=== PATIENT | male | born 1965 | race Caucasian/White ===

== ENCOUNTER 2017-10-13 10:00 | Emergency (ER) | payer SELFPAY ==
[2017-10-13 10:53] LABS: #Basophils 0.1 thou/uL (0.0-0.2); #Eosinphils 0.2 thou/uL (0.0-0.7); #Lymphocytes 2.3 thou/uL (1.20-3.40); #Monocytes 0.6 thou/uL (0.11-0.59); #Neutrophils 3.8 thou/uL (1.40-6.50); %Basophils 1.2 % (0.0-1.0); %Eosinophils 2.7 % (0.0-10.0); %Neutrophils 55.1 % (42.0-75.0); Hemoglobin 16.3 g/dL (14.0-18.0); Mean Corpuscular HGB CONC 34.3 g/dL (32.0-36.0); Mean Corpuscular Hemoglobin 31.8 pg (27.0-31.0); Mean Corpuscular Volume 92.8 fl (80.0-94.0); Mean Platelet Volume 7.8 fL (7.4-10.4); Platelet Count 209 thou/uL (130-400); RBC Distribution Width 11.5 % (11.5-14.5); Red Blood Cell (RBC) Count 5.11 mill/uL (4.70-6.10); White Blood Cell (WBC) Count 6.9 thou/uL (4.8-10.8)
[2017-10-13] MEDS ORDERED: Nitroglycerin 2% Ointment 1 INCH/1 GM Packet ONE (10:56)
[2017-10-13 11:17] LABS: ALT (SGPT) 19 U/L (8-55); AST (SGOT) 18 U/L (5-34); Albumin 3.7 g/dL (3.5-5.0); Alkaline Phosphatase 78 U/L (40-150); Anion Gap 5 mmol/L (10-20); BUN (Urea Nitrogen) 11 mg/dL (8.4-25.7); Bilirubin, Total 0.3 mg/dL (0.2-1.2); CK (CPK) 64 U/L (30-200); Calc. Creatinine Clearance 0 mL/min (70-130); Calcium 8.5 mg/dL (7.8-10.44); Carbon Dioxide 29 mmol/L (22-29); Chloride 106 mmol/L (98-107); Estimated GFR-MDRD 81; Globulin 2.5 g/dL (2.4-3.5); Glucose 102 mg/dL (70-105); Lipase 199 U/L (8-78); Potassium 4.1 mmol/L (3.5-5.1); Protein, Total 6.2 g/dL (6.0-8.3); Sodium 136 mmol/L (136-145)
--- NOTE | 2017-10-13 11:20 | RAD ---
CHEST ONE VIEW: History: 52-year-old male with history of chest pain, primarily left sided which began one hour prior to admis francisco javier. FINDINGS: Heart size is normal. The lungs are clear of acute process. No confluent pneumonia or overt edema. 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 IMPRESSION: No acute intrathoracic disease. No old studies. POS: OFF
[2017-10-13 11:24] LABS: CKMB 2.3 ng/mL (0-6.6); Troponin I Less than 0.010 ng/mL (< 0.028)
--- NOTE | 2017-10-13 12:44 | PDOC.FPRHP ---
- History of Present Illness Chief Complaint: chest pain - Allergies/Adverse Reactions Allergies Allergy/AdvReac Type Severity Reaction Status Date / Time No Known Allergies Allergy Unverified 10/13/17 12:50 - Home Medications Comments: none - History PMHx: none PSHx: none FHx: Social: - Vital signs BP: 138/93 HR: 69 RR: 20 Tmax: 98.5 Pox: 94% on RA Wt: 90kg FMR H&P: Results - Labs Result Diagrams: 10/13/17 10:44 10/13/17 10:44 Lab results: WBC 6.9 thou/uL (4.8-10.8) 10/13/17 10:44 Hgb 16.3 g/dL (14.0-18.0) 10/13/17 10:44 Hct 47.5 % (42.0-52.0) 10/13/17 10:44 MCV 92.8 fl (80.0-94.0) 10/13/17 10:44 Plt Count 209 thou/uL (130-400) 10/13/17 10:44 Neutrophils % 55.1 % (42.0-75.0) 10/13/17 10:44 Sodium 136 mmol/L (136-145) 10/13/17 10:44 Potassium 4.1 mmol/L (3.5-5.1) 10/13/17 10:44 Chloride 106 mmol/L (98-107) 10/13/17 10:44 Carbon Dioxide 29 mmol/L (22-29) 10/13/17 10:44 BUN 11 mg/dL (8.4-25.7) 10/13/17 10:44 Creatinine 0.97 mg/dL (0.6-1.3) 10/13/17 10:44 Glucose 102 mg/dL (70-105) 10/13/17 10:44 Calcium 8.5 mg/dL (7.8-10.44) 10/13/17 10:44 Total Bilirubin 0.3 mg/dL (0.2-1.2) 10/13/17 10:44 AST 18 U/L (5-34) 10/13/17 10:44 ALT 19 U/L (8-55) 10/13/17 10:44 Alkaline Phosphatase 78 U/L (40-150) 10/13/17 10:44 Creatine Kinase 64 U/L (30-200) 10/13/17 10:44 CK-MB (CK-2) 2.3 ng/mL (0-6.6) 10/13/17 10:44 B-Natriuretic Peptide 18.8 pg/mL (0-100) 10/13/17 10:44 Serum Total Protein 6.2 g/dL (6.0-8.3) 10/13/17 10:44 Albumin 3.7 g/dL (3.5-5.0) 10/13/17 10:44 Lipase 199 U/L (8-78) H 10/13/17 10:44 FMR H&P: Upper Level - Plan Date/Time: 10/13/17 1244 I, [], have evaluated this patient and agree with findings/plan as outlined by quality internship resident. Pertinent changes/additions are listed here.
== END 2017-10-13 12:55 | disposition left against medical advice (07) ==
LOC: ERS 10:00
DX: R07.9 Chest pain, unspecified (principal); F17.210 Nicotine dependence, cigarettes, uncomplicated; Z71.6 Tobacco abuse counseling
CPT/HCPCS: 36415; 71045; 80053; 82550; 82553; 83690; 83880; 84484; 85025; 93005; 94760; 99406